=== PATIENT | female | born 1940 | race Caucasian/White ===

== ENCOUNTER → 2018-06-06 02:44 | Outpatient (CLI) | payer MEDICARE, OTHER, SELFPAY ==
[2018-06-06 11:41] LABS: Anion Gap 9.2 mmol/L (3-11); BUN 12 mg/dL (7-18); CO2 25.8 mmol/L (21.0-32.0); Calcium 8.4 mg/dL (8.5-10.1); Chloride 108 mmol/L (98-107); Cholesterol 178 mg/dL (50-200); Glucose 103 mg/dL (70-100); HDL Cholesterol 71 mg/dL (40-60); LDL CHOLESTEROL 93 mg/dL (<100); Potassium 4.3 mmol/L (3.5-5.1); Sodium 143 mmol/L (136-145); Triglyceride 48 mg/dL (30-150)
== END ==
PROVIDERS: PCP Family Medicine; Visit Provider Family Medicine
DX: E78.5 Hyperlipidemia, unspecified (principal)
CPT/HCPCS: 36415; 80048; 80061; 83721

== ENCOUNTER 2019-06-09 08:49 | Outpatient (CLI) | payer MEDICARE, OTHER, SELFPAY ==
[2019-06-09 10:45] LABS: Anion Gap 9.3 mmol/L (3-11); BUN 18 mg/dL (7-18); CO2 27.7 mmol/L (21.0-32.0); CREATININE 0.81 mg/dL (0.55-1.02); Calcium 9.1 mg/dL (8.5-10.1); Chloride 104 mmol/L (98-107); Glucose 100 mg/dL (70-100); Potassium 4.2 mmol/L (3.5-5.1); Sodium 141 mmol/L (136-145)
== END 2019-06-09 09:09 ==
PROVIDERS: PCP Family Medicine; Visit Provider Family Medicine
DX: R73.01 Impaired fasting glucose (principal)
CPT/HCPCS: 36415; 80048

== ENCOUNTER → 2019-08-03 08:16 | Outpatient (BNVA) | payer MEDICARE, OTHER, SELFPAY | PROVIDERS: PCP Family Medicine; Referring Provider Family Medicine; Visit Provider Physical Therapy Assistant | DX: Z12.11 Encounter for screening for malignant neoplasm of colon (principal); Z80.0 Family history of malignant neoplasm of digestive organs ==

== ENCOUNTER 2020-05-23 00:36 | Outpatient (CLI) | payer MEDICARE, SELFPAY ==
--- NOTE | 2020-05-23 | DI.CT_ITS ---
EXAM: CT SINUS WO CLINICAL HISTORY: NASAL POLYPOSIS, J33.9. Evaluate for sinusitis. TECHNIQUE: Imaging Protocol: Axial computed tomography images with coronal and sagittal reformatted images were created and reviewed. COMPARISON: No exams were available for comparison FINDINGS: AXIAL IMAGES: Frontal sinuses: Near complete opacification of the right frontal sinuses. Complete opacification of the left frontal sinuses. Ethmoid air cells: Near complete opacification of the ethmoid air cells bilaterally. Maxillary sinuses: Mucous retention cysts or polyps in the maxillary sinuses bilaterally. Mucosal th ickening in the maxillary sinuses bilaterally. Sphenoid sinus: Mild mucosal thickening in the sphenoid sinuses bilaterally. Ostiomeatal complexes: Obstructed bilaterally. Osseous nasal septum: Midline. Visualized regional soft tissues: No acute findings. Orbits: Unremarkable. Bones: Unremarkable. Mastoid Air Cells: Normally aerated. IMPRESSION: 1. Pansinusitis. 2. Mucous retention cysts or polyps in the maxillary sinuses bilaterally. RADIATION DOSE DELIVERED: Total DLP DATA REPOSITORY: All CT scans at this facility are submitted to the National Radiology Data Registry (NRDR) Dose Index Registry (DIR) with the [employer] ([employer]). RADIATION OPTIMIZATION: All CT scans at this facility use at least one of these dose optimization te chniques: automated exposure control; mA and/or kV adjustment per patient size (includes targeted exa ms where dose is matched to clinical indication); or iterative reconstruction.
== END 2020-05-23 00:56 ==
PROVIDERS: PCP Family Medicine; Visit Provider Otolaryngology
DX: J32.4 Chronic pansinusitis (principal); J34.1 Cyst and mucocele of nose and nasal sinus; J33.9 Nasal polyp, unspecified
CPT/HCPCS: 70486

== ENCOUNTER 2020-06-11 04:41 | Outpatient (CLI) | payer MEDICARE, SELFPAY ==
[2020-06-11 12:39] LABS: Anion Gap 8.7 mmol/L (3-11); BUN 18 mg/dL (7-18); CO2 29.3 mmol/L (21.0-32.0); CREATININE 0.85 mg/dL (0.55-1.02); Calcium 9.5 mg/dL (8.5-10.1); Chloride 104 mmol/L (98-107); Glucose 102 mg/dL (74-106); Potassium 4.5 mmol/L (3.5-5.1); Sodium 142 mmol/L (136-145)
== END 2020-06-11 05:01 ==
PROVIDERS: PCP Family Medicine; Visit Provider Family Medicine
DX: R73.01 Impaired fasting glucose (principal)
CPT/HCPCS: 36415; 80048

== ENCOUNTER 2021-01-21 03:33 | Outpatient (CLI) | payer MEDICARE, SELFPAY ==
[2021-01-21 12:40] LABS: Hemoglobin A1C 6.1 % (<5.7)
== END 2021-01-21 03:34 | disposition home or self-care (01) ==
LOC: LOS 03:33
PROVIDERS: PCP Nurse Practitioner; Visit Provider Nurse Practitioner
DX: R73.03 Prediabetes (principal)
CPT/HCPCS: 36415; 83036

== ENCOUNTER 2021-01-27 02:43 | Outpatient (CLI) | payer MEDICARE, SELFPAY ==
--- NOTE | 2021-01-27 07:30 | DI.MAMMO_ITS ---
EXAM: MG MAMMO SCREENING CLINICAL HISTORY: screening,Z12.39. TECHNIQUE: Bilateral full field digital CC and MLO mammographic images were obtained with 3D tomosyn thesis and utilizing computer aided detection (CAD). COMPARISON: Prior mammograms dating back to 2010, the most recent being June 2017. FINDINGS: No new significant radiograph findings in the right breast. In the left breast there is a group of microcalcifications lateral of center located approximately 6 cm in from the nipple, not associated with obvious mass. These were not evident in 2017. Six-month follow-up recommended. There is no significant architectural distortion nor skin thickening-retraction. IMPRESSION: No radiographic evidence of malignancy in the right breast. In the left breast there is a group of microcalcifications which was not evident on the most recent m ammogram which was 2016. Present with benign appearance. Recommend six-month follow-up left breast mammogram. BI-RADS Category 3 - 6 month - Probably Benign Finding: Recommend follow-up mammography in 6 months Breast Density - Category B - Scattered areas of fibroglandular density Breast density Category C or D implies that the patient has dense breast tissue. Dense breast tissue can make it harder to find cancer on a mammogram. Dense breast tissue is also associated with an incr eased risk of breast cancer. This information about the result of the mammogram report was provided to the patient to raise their awareness. Use this report when you speak with the patient about their risks for breast cancer, which includes their family history. At that time, you may recommend additional screening tests (Ultrasoun d or MRI) as these tests may add significant information. A negative radiographic report should not delay biopsy if a dominant or clinically suspicious mass is present. Up to ten percent of cancers are not identified on mammography. A negative report may reinforce clinical impression. Adenosis and dense breasts may obscure an underlying neoplasm. False positive reports average 6 to 10%. Patient will receive a letter notifying them of these results.
== END 2021-01-27 03:03 ==
PROVIDERS: PCP Nurse Practitioner; Visit Provider Nurse Practitioner
DX: Z12.31 Encounter for screening mammogram for malignant neoplasm of breast (principal); R92.8 Other abnormal and inconclusive findings on diagnostic imaging of breast
CPT/HCPCS: 77063; 77067

== ENCOUNTER 2021-08-01 02:36 | Outpatient (CLI) | payer MEDICARE, SELFPAY ==
--- NOTE | 2021-08-01 08:53 | DI.DEXA_ITS ---
Exam(s) XR DEXA BONE DENSITY W/WO RADHA EXAM: XR DEXA BONE DENSITY W/WO RADHA CLINICAL HISTORY: SCREENING FOR OSTEOPOROSIS IN POSTMENOPAUSAL WOMAN,Z78.0 TECHNIQUE: COMPARISON: Comparison examination is 04/02/2008. FINDINGS: Lateral Spine Image: Unremarkable. No compression deformities identified. Left hip: Total T-Score: -2.0. This compares to -1.0 on the prior examination. Total Z-Score: 0.1. T- and Z-scores: Findings consistent with osteopenia. Lumbar Spine: Total T-Score: -2.1. This compares to -1.6 on the prior examination. Total Z-Score: 0.6. T- and Z-scores: Findings consistent with osteopenia. 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
== END 2021-08-01 02:56 ==
PROVIDERS: PCP Nurse Practitioner; Visit Provider Nurse Practitioner
DX: Z78.0 Asymptomatic menopausal state (principal); M85.89 Other specified disorders of bone density and structure, multiple sites
CPT/HCPCS: 77080

== ENCOUNTER 2021-08-05 02:35 | Outpatient (CLI) | payer MEDICARE, SELFPAY ==
--- NOTE | 2021-08-05 06:30 | DI.MAMMO_ITS ---
Exam(s) MG MAMMO DIAGNOSTIC UNI EXAM: MAMMO DIAGNOSTIC UNI CLINICAL HISTORY: 3-6 mo f/u,F/U ABNL MAMMO, R92.8. TECHNIQUE: Craniocaudal and mediolateral oblique Full Field Digital Mammography views of the left br east with Computer Aided Diagnosis followed by Tomosynthesis. COMPARISON: Priors available for comparison. FINDINGS: Mammography/Tomosynthesis: Masses/Architectural Distortion: None seen. Microcalcifictions: No suspicious pleomorphic-type are seen. The central calcifications seen in the l eft breast appears stable. Skin Thickening/Nipple Retraction: None. IMPRESSION: 1. No evidence of malignancy is noted. Stable appearance of the left breast calcifications. 2. A six-month follow-up left mammogram is recommended for re-evaluation of the microcalcifications. 3. The findings were discussed with the patient on the date of the examination. BI-RADS Category 3 - 6 month - Probably Benign Finding: Recommend follow-up imaging in 6 months Breast Density - Category B - Scattered areas of fibroglandular density Breast density Category C or D implies that the patient has dense breast tissue. Dense breast tissue can make it harder to find cancer on a mammogram. Dense breast tissue is also associated with an incr eased risk of breast cancer. This information about the result of the mammogram report was provided to the patient to raise their awareness. Use this report when you speak with the patient about their risks for breast cancer, which includes their family history. At that time, you may recommend additional screening tests (Ultrasoun d or MRI) as these tests may add significant information. A negative radiographic report should not delay biopsy if a dominant or clinically suspicious mass is present. Up to ten percent of cancers are not identified on mammography. A negative report may reinforce clinical impression. Adenosis and dense breasts may obscure an underlying neoplasm. False positive reports average 6 to 10%. Patient will receive a letter notifying them of these results.
== END 2021-08-05 02:55 ==
PROVIDERS: PCP Nurse Practitioner; Visit Provider Nurse Practitioner
DX: R92.8 Other abnormal and inconclusive findings on diagnostic imaging of breast (principal); Z09 Encounter for follow-up examination after completed treatment for conditions other than malignant neoplasm; R92.0 Mammographic microcalcification found on diagnostic imaging of breast
CPT/HCPCS: 77061; 77065; G0279

== ENCOUNTER 2021-12-08 03:43 | Outpatient (CLI) | payer MEDICARE, SELFPAY ==
[2021-12-08 12:22] LABS: Hemoglobin A1C 5.9 % (<5.7)
[2021-12-11 09:53] LABS: 1,25-Dihydroxyvitamin D 39 pg/mL (18-78)
== END 2021-12-08 03:44 | disposition home or self-care (01) ==
LOC: LBO 03:43
PROVIDERS: PCP Nurse Practitioner; Visit Provider Nurse Practitioner
DX: R73.03 Prediabetes (principal); E55.9 Vitamin D deficiency, unspecified
CPT/HCPCS: 36415; 82652; 83036

== ENCOUNTER → 2022-02-02 03:08 | Outpatient (CLI) | payer MEDICARE, SELFPAY ==
--- NOTE | 2022-02-02 07:45 | DI.MAMMO_ITS ---
Exam(s) MAMMO DIAGNOSTIC BI EXAM: MAMMO DIAGNOSTIC BI CLINICAL HISTORY: 6 MO F/U, R92.8. TECHNIQUE: Both CC and MLO mammographic images were obtained with 3D tomosynthesis technique and uti lizing computer aided detection (CAD). COMPARISON: Prior mammograms were reviewed, the most recent being 08/05/2021. FINDINGS: In the left breast the recently described microcalcifications remain stable and benign appearance. There are no new spiculated masses nor malignant-appearing microcalcification groups in either breast . There is no new architectural distortion or skin thickening-traction. IMPRESSION: Stable benign findings. No radiographic evidence of malignancy. Appropriate follow-up is to keep this patient yearly mammogram schedule, with earlier imaging if a se lf detected breast changes noted. The patient was informed of the findings and follow-up recommendations prior to leaving the [facility]. BI-RADS Category 2 - Benign Findings Breast Density - Category B - Scattered areas of fibroglandular density Breast density Category C or D implies that the patient has dense breast tissue. Dense breast tissue can make it harder to find cancer on a mammogram. Dense breast tissue is also associated with an incr eased risk of breast cancer. This information about the result of the mammogram report was provided to the patient to raise their awareness. Use this report when you speak with the patient about their risks for breast cancer, which includes their family history. At that time, you may recommend additional screening tests (Ultrasoun d or MRI) as these tests may add significant information. A negative radiographic report should not delay biopsy if a dominant or clinically suspicious mass is present. Up to ten percent of cancers are not identified on mammography. A negative report may reinforce clinical impression. Adenosis and dense breasts may obscure an underlying neoplasm. False positive reports average 6 to 10%. Patient will receive a letter notifying them of these results.
== END ==
PROVIDERS: PCP Nurse Practitioner; Visit Provider Nurse Practitioner
DX: R92.8 Other abnormal and inconclusive findings on diagnostic imaging of breast (principal); N64.59 Other signs and symptoms in breast; N60.82 Other benign mammary dysplasias of left breast
CPT/HCPCS: 77062; 77066; G0279

== ENCOUNTER 2023-03-05 15:23 | Outpatient (CLI) | payer MEDICARE, SELFPAY ==
--- NOTE | 2023-03-05 | DI.RAD_ITS ---
Exam(s) XR CHEST 2V PA LATERAL EXAM: XR CHEST 2V PA LATERAL CLINICAL HISTORY: COUGH, R05.8, ? UNDERLYING PNEUMONIA OR CHF. TECHNIQUE: 2D digital imaging was performed. COMPARISON: CR CHEST 2 VIEWS PA,LAT from 04/13/2017 FINDINGS: 2 views: Heart size is normal. The mediastinum is not widened. Lungs are clear. No infiltrates nor pleural effusions. IMPRESSION: No acute pulmonary findings. DATA REPOSITORY: RADIATION DOSE DELIVERED:
== END 2023-03-05 15:43 ==
LOC: DI 15:23
PROVIDERS: PCP Nurse Practitioner Family; Visit Provider Physician Assistant Medical
DX: R05.8 Other specified cough (principal)
CPT/HCPCS: 93010; 71046

== ENCOUNTER 2023-03-05 16:16 | Outpatient (REF) | payer MEDICARE, SELFPAY ==
[2023-03-05 14:25] LABS: Abs Immature Grans 0.04 10^3/uL (0.0-0.06); Absolute Basophil Count 0.11 10^3/uL (0.0-0.2); Absolute Eosinophil Count 0.86 10^3/uL (0.0-0.7); Absolute Lymphocyte Count 1.72 10^3/uL (1.2-3.4); Absolute Monocyte Count 0.78 10^3/uL (0.1-0.8); Absolute Neutrophil Count 5.62 10^3/uL (1.2-6.7); Basophils % 1.2; Eosinophils % 9.4; HCT 39.4 % (36.0-46.0); Immature Grans % 0.4; Lymphocytes % 18.8; MCH 30.5 pg (27.0-33.0); MCV 93 fL (80-95); Monocytes % 8.5; Neutrophils % 61.7; Platelet Count 350 10^3/uL (130-400); RBC 4.26 10^6/uL (3.93-5.22); RDW-SD 44.2 fL; WBC 9.13 10^3/uL (4.4-10.8)
[2023-03-05 14:34] LABS: ESR 34 mm/hr (0-30)
[2023-03-05 14:42] LABS: ALT 21 U/L (14-59); AST 15 U/L (15-37); Albumin 4.1 g/dL (3.4-5.0); Alkaline Phosphatase 127 U/L (46-116); Anion Gap 6.6 mmol/L (3-11); BUN 20 mg/dL (7-18); Bilirubin, Total 0.5 mg/dL (0.2-1.0); C-Reactive Protein 0.19 mg/dL (0.0-0.3); CO2 30.4 mmol/L (21.0-32.0); CREATININE 0.9 mg/dL (0.55-1.02); Chloride 102 mmol/L (98-107); Estimated GFR 63.83 (mL/min/1.73m2); Glucose 101 mg/dL (74-106); NT-proBNP 64 pg/mL (<300); Potassium 4.6 mmol/L (3.5-5.1); Sodium 139 mmol/L (136-145)
== END 2023-03-05 16:17 | disposition home or self-care (01) ==
LOC: LBN 16:16
PROVIDERS: PCP Nurse Practitioner Family; Visit Provider Physician Assistant Medical
DX: R05.8 Other specified cough (principal)
CPT/HCPCS: 80053; 85652; 83880; 85025; 86140

== ENCOUNTER 2023-03-26 01:52 | Outpatient (CLI) | payer MEDICARE, SELFPAY ==
[2023-03-26] MEDS: Inhaler, Assist Device 1 EACH MC (14:24)
[2023-03-26] MEDS: Albuterol HFA 18 GM 200 PUFF INH IH (14:24)
--- NOTE | 2023-03-26 14:25 | W.PFT ---
Date of service: 03/26/23 Time of Service: 12:58 Pulmonary Function Test Result Indications: Dyspnea Interpretation Spirometry: There is mild airflow limitation. There is no significant bronchodilator response. Impression Mild airflow obstruction. Clinical Correlation therefore is recommended.
== END 2023-03-26 01:53 | disposition home or self-care (01) ==
LOC: RT 01:52
PROVIDERS: PCP Nurse Practitioner Family; Visit Provider Nurse Practitioner Family
DX: R06.02 Shortness of breath (principal)
CPT/HCPCS: 94060

== ENCOUNTER 2023-08-26 04:15 | Outpatient (CLI) | payer MEDICARE, SELFPAY ==
[2023-08-26 12:51] LABS: Hemoglobin A1C 5.8 % (<5.7)
[2023-08-26 12:52] LABS: Anion Gap 10.3 mmol/L (3-11); BUN 20 mg/dL (7-18); CO2 27.7 mmol/L (21.0-32.0); CREATININE 0.9 mg/dL (0.55-1.02); Calcium 9.6 mg/dL (8.5-10.1); Calculated LDL 111 mg/dL (<100); Chloride 102 mmol/L (98-107); Cholesterol 202 mg/dL (<200); Estimated GFR 63.83 (mL/min/1.73m2); Glucose 123 mg/dL (74-106); HDL Cholesterol 80 mg/dL (40-60); Potassium 3.9 mmol/L (3.5-5.1); Sodium 140 mmol/L (136-145); Triglyceride 55 mg/dL (<150)
== END 2023-08-26 04:16 | disposition home or self-care (01) ==
LOC: LOS 04:15
PROVIDERS: PCP Nurse Practitioner Family; Visit Provider Nurse Practitioner Family
DX: E78.5 Hyperlipidemia, unspecified (principal); M85.80 Other specified disorders of bone density and structure, unspecified site; R73.03 Prediabetes; Z00.00 Encounter for general adult medical examination without abnormal findings; R73.09 Other abnormal glucose
CPT/HCPCS: 36415; 80048; 80061; 83036

== ENCOUNTER 2024-08-23 10:51 | Outpatient (CLI) | payer MEDICARE, SELFPAY ==
[2024-08-23 12:11] LABS: HCT 38.1 % (36.0-46.0); HGB 12.8 g/dL (11.2-15.7); MCH 31.1 pg (27.0-33.0); MCHC 33.6 % (32.0-36.0); MCV 93 fL (80-95); MPV 9.9 fL (8.0-11.0); Platelet Count 364 10^3/uL (130-400); RBC 4.11 10^6/uL (3.93-5.22); RDW 12.9 % (11.7-14.6); RDW-SD 43.9 fL; WBC 9.04 10^3/uL (4.4-10.8)
[2024-08-23 13:16] LABS: Hemoglobin A1C 5.8 % (<5.7)
[2024-08-23 13:19] LABS: ALT 16 U/L (14-59); AST 12 U/L (15-37); Albumin 3.7 g/dL (3.4-5.0); Alkaline Phosphatase 133 U/L (46-116); BUN 22 mg/dL (7-18); Bilirubin, Total 0.73 mg/dL (0.2-1.0); CREATININE 0.9 mg/dL (0.55-1.02); Calcium 9.2 mg/dL (8.5-10.1); Chloride 107 mmol/L (98-107); Estimated GFR 63.43 (mL/min/1.73m2); Glucose 107 mg/dL (74-106); Potassium 4.2 mmol/L (3.5-5.1); Sodium 142 mmol/L (136-145); Total Protein 8.3 g/dL (6.4-8.2)
== END 2024-08-23 10:52 | disposition home or self-care (01) ==
LOC: LOS 10:51
PROVIDERS: PCP Nurse Practitioner Family; Referring Provider Nurse Practitioner Family; Visit Provider Nurse Practitioner Family
DX: R73.03 Prediabetes; J44.9 Chronic obstructive pulmonary disease, unspecified; M85.80 Other specified disorders of bone density and structure, unspecified site; Z00.00 Encounter for general adult medical examination without abnormal findings
CPT/HCPCS: 36415; 80053; 80061; 85027; 83036

== ENCOUNTER 2024-08-30 00:56 | Outpatient (CLI) | payer MEDICARE, SELFPAY ==
--- NOTE | 2024-08-30 07:15 | DI.MAMMO_ITS ---
Exam(s) MAMMO SCREENING EXAM: MAMMO SCREENING CLINICAL HISTORY: screening,Z12.39 TECHNIQUE: Mammograms were interpreted according to the usual protocol including computer analysis w [employer] CAD system, tomosynthesis and C-view imaging. COMPARISON: 2014 through 2021 FINDINGS: The breasts are composed of scattered fibroglandular densities, Breast Density category B. No suspicious masses or suspicious microcalcifications are seen. No skin thickening or abnormal axillary lymph nodes are seen. There has been no significant change from prior exams. IMPRESSION: BI-RADS Category 1, Negative mammogram Yearly screening mammography is recommended. Breast Density - Category B, scattered fibroglandular densities. A negative radiographic report should not delay biopsy if a dominant or clinically suspicious mass is present. Up to ten percent of cancers are not identified on mammography. A negative report may reinforce clinical impression. Adenosis and dense breasts may obscure an underlying neoplasm. False positive reports average 6 to 10%. Patient will receive a letter notifying them of these results.
== END 2024-08-30 01:16 ==
PROVIDERS: PCP Nurse Practitioner Family; Visit Provider Nurse Practitioner Family
DX: Z12.31 Encounter for screening mammogram for malignant neoplasm of breast (principal)
CPT/HCPCS: 77063; 77067

== ENCOUNTER 2025-08-28 01:22 | Outpatient (CLI) | payer MEDICARE, SELFPAY ==
[2025-08-28 14:23] LABS: ALT 17 U/L (14-59); AST 14 U/L (15-37); Albumin 3.9 g/dL (3.4-5.0); Alkaline Phosphatase 109 U/L (46-116); Anion Gap 9.7 mmol/L (3-11); BUN 17 mg/dL (7-18); Bilirubin, Total 0.6 mg/dL (0.2-1.0); CO2 28.3 mmol/L (21.0-32.0); Calcium 9.3 mg/dL (8.5-10.1); Calculated LDL 108 mg/dL (<100); Chloride 101 mmol/L (98-107); Cholesterol 199 mg/dL (<200); Estimated GFR 63.04 (mL/min/1.73m2); Glucose 104 mg/dL (74-106); HDL Cholesterol 79 mg/dL (>or=50); Hemoglobin A1C 5.9 % (<5.7); Potassium 3.9 mmol/L (3.5-5.1); Sodium 139 mmol/L (136-145); Total Protein 8.4 g/dL (6.4-8.2); Triglyceride 63 mg/dL (<150)
== END 2025-08-28 01:23 | disposition home or self-care (01) ==
PROVIDERS: PCP Nurse Practitioner Family; Visit Provider Nurse Practitioner Family
DX: E78.5 Hyperlipidemia, unspecified (principal); Z00.00 Encounter for general adult medical examination without abnormal findings; R73.03 Prediabetes; M85.80 Other specified disorders of bone density and structure, unspecified site; J44.9 Chronic obstructive pulmonary disease, unspecified
CPT/HCPCS: 36415; 80053; 80061; 83036

== ENCOUNTER → 2025-09-20 05:49 | Outpatient (CLI) | payer MEDICARE, SELFPAY ==
--- NOTE | 2025-09-20 08:30 | DI.DEXA_ITS ---
Exam(s) XR DEXA BONE DENSITY W/WO RADHA EXAM: XR DEXA BONE DENSITY W/WO RADHA CLINICAL HISTORY: screening, ASYMPTOMATIC MENOPAUSAL STATE Z78.0 TECHNIQUE: [employer] C densitometer analysis of left hip, lumbar spine and left forearm. Lateral survey image of the thoracic and lumbar spine. COMPARISON: DX RADHA from 04/02/2008, 2005 and 2002 CR XR DEXA BONE DENSITY W/WO RADHA from 08/01/2021 FINDINGS: Lateral view of the thoracic and lumbar spine shows no evidence of compression fractures. Bone mineral density measurements of the lumbar spine correspond to a total T- score of -1.9, in the osteopenic range. This is not significantly changed from 2020 represents a 6.8 percent decrease from 2002. Bone mineral density measurements of the left hip correspond to a total T-score of -2.3. This represents a 5.0 percent decrease from 2020 and 21.7 percent decrease from 2002. The femoral neck T-score is -2.5, in the osteoporotic range. Theleft forearm bone mineral density measurements correspond to a T-score of the distal 3rd of -2.8, in the osteoporotic range. This represents a 9.4 percent decrease in since 2020. The forearm was not analyzed in 2002 through 2007.. IMPRESSION: Osteopenia of the spine. Osteoporosis of the hip and forearm.
== END ==
LOC: DI 05:50
PROVIDERS: PCP Nurse Practitioner Family; Visit Provider Nurse Practitioner Family
DX: Z78.0 Asymptomatic menopausal state (principal)
CPT/HCPCS: 77080